=== PATIENT | female | born 1935 | race Two or more races ===

== ENCOUNTER 2023-01-27 05:59 | Day surgery (SDC) | payer OTHER ==
[~2023-01-27 05:59] MED LIST: AMLODIPINE BESYL5 MG PO; AZOPT10 ML OP; CHILDREN'S ASPI81 MG PO; GABAPENTIN400 MG PO; TRIPHROCAPS SOFT1 MG PO; XELPROS2.5 ML OP; ZESTRIL20 MG PO; ZOCOR40 MG PO
== END 2023-01-27 14:35 | disposition home or self-care (01) ==
LOC: CIR.AMB 05:59
PROVIDERS: ATTEND Colon & Rectal Surgery
DX: K64.2 Third degree hemorrhoids (principal); K64.4 Residual hemorrhoidal skin tags; K64.8 Other hemorrhoids; Z20.822 Contact with and (suspected) exposure to COVID-19; K62.9 Disease of anus and rectum, unspecified; K62.5 Hemorrhage of anus and rectum